=== PATIENT | male | born 1945 | race Asian ===

== ENCOUNTER 2019-10-22 21:50 | Emergency (ER) | payer OTHER ==
[~2019-10-22] VITALS: Ht 182.9 cm; Wt 59.0 kg
[2019-10-22 22:28] LABS: PLATELET COUNT 248 K/uL (142-355)
[2019-10-22 22:35] LABS: POTASSIUM 4.5 mmol/L (3.6-5.2)
[2019-10-22 23:30] VITALS: BP 180/89
[2019-10-23] MEDS ORDERED: AMLODIPINE BESYLATE PO (07:21)
[2019-10-23] MEDS ORDERED: BAYER ASPIRIN E81 MG PO (07:23)
[2019-10-23] MEDS ORDERED: LIPITOR40 MG PO (07:25)
[2019-10-23] MEDS ORDERED: CARV3.12 PO (07:26)
[2019-10-23] MEDS ORDERED: ISOSORB MONO10 MG PO (07:29)
[2019-10-23] MEDS ORDERED: CLOP75TA2 PO (07:30)
[2019-10-23] MEDS ORDERED: MIRALAX3350 NF PO (07:34)
== END 2019-10-22 23:30 | disposition other institution (70) ==
LOC: ED 22:07
PROVIDERS: Family Medicine
DX: F03.91 Unspecified dementia, unspecified severity, with behavioral disturbance (principal); I10 Essential (primary) hypertension; Z11.59 Encounter for screening for other viral diseases; Z04.6 Encounter for general psychiatric examination, requested by authority
CPT/HCPCS: 36415; 80053; 81000; 85027; 87635; 93005; 99283; U0003